=== PATIENT | male | born 1990 | race Caucasian/White ===

== ENCOUNTER 2018-12-29 12:12 | Inpatient (IN) | payer OTHER ==
[~2018-12-29] VITALS: Ht 188 cm; Wt 100.0 kg
[2018-12-29] MEDS ORDERED: MULTIVITAMIN -ADULT INJECTION 10 ML, THIAMINE INJection 100 MG, FOLIC ACID 1 MG in NS 1... IV ONE (12:30)
[2018-12-29] MEDS ORDERED: OXAZEPAM 15 MG CAP PO ONE (12:30)
[2018-12-29] MEDS: LORazepam 2 MG TAB PO PRN ×2 (12:43→14:56)
[2018-12-29 12:49] LABS: HEMATOCRIT 48.4 % (42.0-52.0); HEMOGLOBIN 17.6 g/dl (13.5-17.5); MEAN CORPUSCULAR HEMOGLOBIN 32.6 pg (27.0-33.0); MEAN CORPUSCULAR HGB CONC 36.4 g/dl (32.0-36.5); MEAN CORPUSCULAR VOLUME 89.6 fl (80.0-96.0); PLATELET COUNT, AUTOMATED 303 10^3/uL (150-450); WHITE BLOOD COUNT 9.5 10^3/uL (4.0-10.0)
[2018-12-29 13:31] LABS: ACETAMINOPHEN LEVEL < 2.0 UG/ML (10.0-30.0); ALT/SGPT 47 U/L (12-78); BILIRUBIN,DIRECT 0.4 MG/DL (0.0-0.2); BILIRUBIN,TOTAL 1.4 MG/DL (0.2-1.0); BLOOD UREA NITROGEN 20 MG/DL (7-18); CALCIUM LEVEL 10.3 MG/DL (8.5-10.1); CARBON DIOXIDE LEVEL 30 MEQ/L (21-32); CHLORIDE LEVEL 97 MEQ/L (98-107); CREATININE FOR GFR 1.26 MG/DL (0.70-1.30); ETHYL ALCOHOL (ETHANOL) 0.084 % (0.000-0.010); GLOMERULAR FILTRATION RATE > 60.0 (>60); GLUCOSE, FASTING 99 MG/DL (70-100); LIPASE 76 U/L (73-393); POTASSIUM SERUM 4.2 MEQ/L (3.5-5.1); SALICYLATE LEVEL < 1.7 MG/DL (5.0-30.0); SODIUM LEVEL 139 MEQ/L (136-145); THYROID STIMULATING HORMONE 0.591 uIU/ML (0.358-3.740); TOTAL PROTEIN 8.8 GM/DL (6.4-8.2)
[2018-12-29 14:59] LABS: AMPHETAMINES LEVEL URINE NEGATIVE (NEGATIVE); BARBITURATES URINE NEGATIVE (NEGATIVE); BENZODIAZEPINES URINE NEGATIVE (NEGATIVE); CANNABINOIDS URINE POSITIVE (NEGATIVE); COCAINE METABOLITE URINE NEGATIVE (NEGATIVE); METHADONE URINE NEGATIVE (NEGATIVE); OPIATES URINE NEGATIVE (NEGATIVE); PHENCYCLIDINE URINE NEGATIVE (NEGATIVE)
[2018-12-29] MEDS ORDERED: MAALOX 30 ML SUSP *UDC PO PRN (20:30)
[2018-12-29] MEDS ORDERED: NICOTINE 21MG/24HR 1 EA TRANSDERMAL TD ONE (20:30)
[2018-12-29] MEDS ORDERED: THIAMINE 100 MG TAB PO SCH (21:00)
[2018-12-29] MEDS: THIAMINE 100 MG TAB PO SCH (21:00)
--- NOTE | 2018-12-29 21:38 | ECGEPIP ---
[facility] - ED Test Date: 2018-12-29 Pat Name: GIL CHAUDHRY Department: Room: - Gender: Male [employer] Dispatcher: [facility] : 1990 Requested By: Jabier Barriga Order Number: [id number] Reading MD: Lina Julian Measurements Intervals [place] Rate: 109 P: 61 [place]: 141 QRS: 0 QRSD: 94 T: 41 QT: 327 QTc: 441 Interpretive Statements SINUS TACHYCARDIA ABNORMAL RHYTHM ECG NO PRIOR Electronically Signed on 12-29-2018 21:38:21 EDT by Lina Julian
[2018-12-29] MEDS ORDERED: LORazepam 2 MG TAB PO ONE (22:15)
[2018-12-29] MEDS: ONDANSETRON 4 MG TAB (S0181) PO PRN (22:35)
[2018-12-29 22:52] VITALS: BP 131/87
[2018-12-29 22:54] VITALS: BP 131/87
[2018-12-30] VITALS (11 sets, daily range): BP systolic 117–152; BP diastolic 67–97
[2018-12-30] MEDS ORDERED: MIRTAZAPINE 15 MG TAB PO ONE (00:15)
[2018-12-30] MEDS: LORazepam 2 MG TAB PO PRN ×5 (07:43→19:45)
[2018-12-30] MEDS: ONDANSETRON 4 MG TAB (S0181) PO PRN (07:43)
[2018-12-30] MEDS: MULTIVITAMINS/MINERALS THERAP 1 TAB PO SCH (07:43)
[2018-12-30] MEDS: NICOTINE 21MG/24HR 1 EA TRANSDERMAL TD PRN (07:44)
[2018-12-30] MEDS: THIAMINE 100 MG TAB PO SCH ×2 (07:44→20:12)
[2018-12-30] MEDS: FOLIC ACID 1 MG TAB PO SCH (07:44)
--- NOTE | 2018-12-30 08:53 | HPEPDOC ---
General Date of Admission Dec 29, 2018 at 20:22 Date of Service: Dec 30, 2018 Attending Physician: TEOFILO BYNUM MD Chief Complaint The patient is a 28-year-old male admitted with a reason for visit of Alcohol Withdrawl/Vomiting. History of Present Illness Janice Julien is a 28 year old male, primary medical history significant for heavy alcohol and polysubstance abuse, admitted on account of alcohol withdrawal. Patient reportedly drinks typically 2 bottles of liquor a day. On admission he also complained of headache, eyes shaking, diaphoresis, tremors. On assessment, he complains of hematemesis 2 nights ago and upper epigastric pain. He, however, denies chest pain, shortness of breath, weakness. Home Medications No Active Prescriptions or Reported Meds Allergies Coded Allergies: No Known Allergies (Unverified , 12/29/18) Past Medical History Medical History Depression Anxiety Nicotine dependence Polysubstance abuse-THC Alcohol abuse Surgical History [place] tooth removal Family History Significant Family History: No pertinent family hx Denies any pertinent family history Social History * Smoker: greater than 1 pack/day, cigarettes Alcohol: heavy Drugs: marijuana Psychosocial History: Anxiety, Depression A-FIB/CHADSVASC A-FIB History Current/History of A-Fib/PAF?: No Current PO Anticoag Therapy: No Review of Systems Other systems A pertinent 10 point review of systems is completed, negative except as stated in the history of presenting illness Physical Examination Other physical findings GENERAL: NAD SKIN : Warm, dry intact HEENT: Atraumatic, normocephalic, moist mucous membrane CARDIOVASCULAR: Regular rate and rhythm, S1S2, no JVD, no edema, distal pulses + palpable RESP: CTAB, no accessory muscle use noted ABDOMEN: BS+ non distended non tender MS: no joint deformities NEURO: Alert and oriented x 3, CN2-12 grossly intact, tremors present, PSYCH: no anxiety or agitation, appropriate mood and affect. Vital Signs Vital Signs Date Time Temp Pulse Resp B/P (MAP) Pulse Ox O2 Delivery O2 Flow Rate FiO2 12/30/18 07:36 93 135/88 12/30/18 06:38 99.0 14 12/29/18 22:54 95 12/29/18 21:00 Room Air Laboratory Data Labs 24H Laboratory Tests 2 12/29/18 12:33: Nucleated Red Blood Cells % (auto) 0.0, Anion Gap 12, Glomerular Filtration Rate > 60.0, Calcium Level 10.3H, Aspartate Amino Transf (AST/SGOT) 59H, Alanine Aminotransferase (ALT/SGPT) 47, Alkaline Phosphatase 110, Total Bilirubin 1.4H, Direct Bilirubin 0.4H, Total Protein 8.8H, Albumin 5.0, Albumin/Globulin Ratio 1.32, Lipase 76, Thyroid Stimulating Hormone (TSH) 0.591, Salicylates Level < 1.7L, Urine Amphetamines Screen NEGATIVE, Urine Benzodiazepines Screen NEGATIVE, Urine Opiates Screen NEGATIVE, Urine Methadone Screen NEGATIVE, Acetaminophen Level < 2.0L, Urine Barbiturates Screen NEGATIVE, Urine Phencyclidine Screen NEGATIVE, Urine Cocaine Metabolite Screen NEGATIVE, Urine Cannabinoids Screen POSITIVEH, Ethyl Alcohol Level 0.084H CBC/BMP Laboratory Tests 12/29/18 12:33 Red Blood Count 5.40, Mean Corpuscular Volume 89.6, Mean Corpuscular Hemoglobin 32.6, Mean Corpuscular Hemoglobin Concent 36.4, Red Cell Distribution Width 11.9 Assessment/Plan Hematemesis with epigastric pain -Start patient on proton pump inhibitor twice a day with sucrafate -Recheck hemoglobin -Reevaluation for effects of therapy Alcohol abuse and withdrawal -Management per primary team Plan / VTE VTE Prophylaxis Ordered?: No VTE Exclusion Mechanical Proph: Low Risk for VTE LINDSEY LEIVA Dec 30, 2018 08:53
[2018-12-30] MEDS ORDERED: FOLIC ACID 1 MG TAB PO SCH (09:00)
[2018-12-30] MEDS ORDERED: MULTIVITAMINS/MINERALS THERAP 1 TAB PO SCH (09:00)
[2018-12-30] MEDS: PANTOPRAZOLE 40MG TAB (PROTONIX) PO SCH ×2 (09:19→20:12)
[2018-12-30 09:46] LABS: HEMATOCRIT 45.8 % (42.0-52.0); HEMOGLOBIN 15.6 g/dl (13.5-17.5); MEAN CORPUSCULAR HEMOGLOBIN 32.2 pg (27.0-33.0); MEAN CORPUSCULAR HGB CONC 34.1 g/dl (32.0-36.5); MEAN CORPUSCULAR VOLUME 94.4 fl (80.0-96.0); PLATELET COUNT, AUTOMATED 199 10^3/uL (150-450); RED BLOOD COUNT 4.85 10^6/uL (4.30-6.10); WHITE BLOOD COUNT 6.7 10^3/uL (4.0-10.0)
[2018-12-30 10:20] LABS: ALT/SGPT 43 U/L (12-78); BILIRUBIN,TOTAL 1.7 MG/DL (0.2-1.0); BLOOD UREA NITROGEN 22 MG/DL (7-18); CALCIUM LEVEL 9.1 MG/DL (8.5-10.1); CARBON DIOXIDE LEVEL 35 MEQ/L (21-32); CHLORIDE LEVEL 98 MEQ/L (98-107); CREATININE FOR GFR 1.25 MG/DL (0.70-1.30); GLOMERULAR FILTRATION RATE > 60.0 (>60); GLUCOSE, FASTING 81 MG/DL (70-100); POTASSIUM SERUM 3.7 MEQ/L (3.5-5.1); SODIUM LEVEL 139 MEQ/L (136-145); TOTAL PROTEIN 7.2 GM/DL (6.4-8.2)
[2018-12-30] MEDS: SUCRALFATE 1 GM TAB PO SCH ×3 (11:05→20:12)
[2018-12-30] MEDS: IBUPROFEN 600 MG TAB PO PRN ×3 (11:12→22:01)
--- NOTE | 2018-12-30 11:44 | MHHPEPDOC ---
General Date Of Admission: Dec 29, 2018 Legal Status: 9.39 Chief Complaint "alcohol withdrawals and anxiety and depression" History of Present Illness HISTORY OF THE PRESENT ILLNESS: Joaquim is a 28 -year-old , male, who self-referred to the ER after experiencing suicidal ideations and drinking 2 bottles of Bacardi. Per ED, Joaquim stated "I've been suicidal for the past month". He has a long history of alcohol abuse and was forced by the to complete a detox program months ago but began drinking again after completing the program. 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 Per ED, in response to his EtOH addiction and current unemployment, Joaquim feels "it would just be easier if I was ". He denied any plan of suicide and any HI. Per ED, Joaquim reported headaches and that his "eyes [were] shaking". He also stated that he consistently drinks 2 bottles of liquor a day. Psychiatric Review of Systems Depression (2 or more weeks): depressed mood, insomnia/hypersomnia (only getti ng about 3 hours of sleep), feelings of excess/guilt, difficulty concentrating, appetite changes (half a bagel is the only thing he's eaten in 4 days -can't keep anyhting down except alcohol. ), suicidal thoughts Dianne (4 or more days of): flight of ideas (always) PTSD: denies Anxiety: situational anxiety, stressor related anxiety, panic attacks (In november. "felt like he was having a heart attack", racing heart, abdominal cramping, lasted 10 minutes) Anxiety/ 6 months or more of: restlessness, keyed up, difficulty concentrating, irritability Past Psychiatric History Previous Psychiatric Diagnosis: Depression. Substance abuse disorder. Previous Psychiatric Admissions: Admitted to psych/ rehab units for alcohol use. Suicide Attempts: Denies Psychiatric Follow-up: TBD Psychiatric medications: Had a script for Campral given after 28 day detox program. Didn't refill it after first bottle was used up. Past Medical History Head Injury: Yes (3 concussions in lifetime) Seizures: Yes (Possible seizure when home alone without alcohol. Post-ictal confusion, body was sore, mouth hurt. ) Hospitalizations: No Surgeries: Yes ([place] teeth) Family Medical/Psychiatric HX Psychiatric Disorders: No Addiction: No Suicide Attemps/Completions: No Addiction History nicotine (1-2 packs per day ), alcohol (2 Liters of Bicardi Liquor/day) Social History Childhood: [place] childhood. Parents at 13. 6 siblings. He is the middle youngest. Good childhood - "never wanted anything." Abuse/Trauma: none Current Living Situation: Lives with girlfriend in [place]. Education: HS grad. 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 Social Support: Family is supportive Legal: Possession of MJ prior to at 20y/o Marital: Single - lives with girlfriend. Never - no kids Mental Status Examination General Appearance: disheveled Build: average Demeanor: average Eye Contact: average Activity: average Behavior: cooperative Speech: clear Mood: euthymic Mood good Affect: full Thought Process: logical/linear Thought Content (Delusions): none reported Thought Content (Other): none reported Thought Content (Aggressive): none reported Perception (Hallucinations): none reported Perception (Other): none reported Cognition (Impairment of): none reported Cognition(Intelligence Est.): average Oriented: Awake, Oriented times three Insight: fair Judgment: Fair Psychosis: Denies, Other Diagnoses depression unspecified r/o adjustment d/o with depression/anxiety r/o substance induced depression secondary alcohol alcohol use d/o - severe A-FIB/CHADSVASC A-FIB History Current/History of A-Fib/PAF?: No Current PO Anticoag Therapy: No Treatment Treatment ordered: NONE Reason Anticoagulant not given: Not indicated/[id number] Assessment Pt thinks he is drinking to self-medicate his depression. States that he is depressed because he is no longer in the . States that the other day he was home with alcohol withdrawals puking blood and bile and felt suicidal so decided to come to the hospital for help. States he is a bit depressed today and is requiring ativan for withdrawal frequently based on ciwa protocol and his vitals are being checked every hour. Pt states it is getting better though. States he's taken zoloft in the past but wasn't compliant and is willing to try it again for mood here. Desires a support system/ alcohol use support program ([facility]). States he tried to self-detox by talking to his friends but restarted due to terrible withdrawal. Denies any current SI/HI. Initial Treatment Plan 1. Patient was admitted on a 9.39 status. 2. Complete history was obtained. 3. With patients permission, family will be contacted and database will be expanded. 4. Patients medication regimen will be reviewed and changed accordingly. 5. Patient will be provided with protected environment. 6. Patient will be treated with individual, group, and milieu therapies. 7. Patient will receive supportive psych-education. 8. Discharge planning will commence immediately. 9. Outpatient follow-up treatment will be strongly recommended. 10. The initial treatment plan will focus initially on: * Depression. * Risk for suicide. * Substance abuse. 11. Start zoloft 50mg daily for mood, continue ativan ciwa protocol and vitals checks per protocol for alcohol withdrawal ESTIMATED LENGTH OF STAY: 5-7 DAYS. TIME SPENT COUNSELING AND COORDINATING INITIAL CARE: 60 minutes. Vital Signs Vital Signs Date Time Temp Pulse Resp B/P (MAP) Pulse Ox O2 Delivery O2 Flow Rate FiO2 12/30/18 10:00 89 136/67 12/30/18 06:38 99.0 14 12/29/18 22:54 95 12/29/18 21:00 Room Air Laboratory Data 24H Labs Laboratory Tests 2 12/29/18 12:33: Nucleated Red Blood Cells % (auto) 0.0, Anion Gap 12, Glomerular Filtration Rate > 60.0, Calcium Level 10.3H, Aspartate Amino Transf (AST/SGOT) 59H, Alanine Aminotransferase (ALT/SGPT) 47, Alkaline Phosphatase 110, Total Bilirubin 1.4H, Direct Bilirubin 0.4H, Total Protein 8.8H, Albumin 5.0, Albumin/Globulin Ratio 1.32, Lipase 76, Thyroid Stimulating Hormone (TSH) 0.591, Salicylates Level < 1.7L, Urine Amphetamines Screen NEGATIVE, Urine Benzodiazepines Screen NEGATIVE, Urine Opiates Screen NEGATIVE, Urine Methadone Screen NEGATIVE, Acetaminophen Level < 2.0L, Urine Barbiturates Screen NEGATIVE, Urine Phencyclidine Screen NEGATIVE, Urine Cocaine Metabolite Screen NEGATIVE, Urine Cannabinoids Screen POSITIVEH, Ethyl Alcohol Level 0.084H 12/30/18 09:07: Nucleated Red Blood Cells % (auto) 0.0, Anion Gap 6L, Glomerular Filtration Rate > 60.0, Calcium Level 9.1, Aspartate Amino Transf (AST/SGOT) 39H, Alanine Aminotransferase (ALT/SGPT) 43, Alkaline Phosphatase 92, Total Bilirubin 1.7H, Total Protein 7.2, Albumin 4.0, Albumin/Globulin Ratio 1.25, Blood Urea Nitrogen 22H, Creatinine 1.25, Sodium Level 139, Potassium Level 3.7, Chloride Level 98, Carbon Dioxide Level 35H CBC/BMP Laboratory Tests 12/29/18 12:33 Red Blood Count 5.40, Mean Corpuscular Volume 89.6, Mean Corpuscular Hemoglobin 32.6, Mean Corpuscular Hemoglobin Concent 36.4, Red Cell Distribution Width 11.9 12/30/18 09:07 Red Blood Count 4.85, Mean Corpuscular Volume 94.4, Mean Corpuscular Hemoglobin 32.2, Mean Corpuscular Hemoglobin Concent 34.1, Red Cell Distribution Width 11.9, Calcium Level 9.1, Aspartate Amino Transf (AST/SGOT) 39 H, Alanine Aminotransferase (ALT/SGPT) 43, Alkaline Phosphatase 92, Total Bilirubin 1.7 H, Total Protein 7.2, Albumin 4.0 Medications No Active Prescriptions or Reported Meds Allergies Coded Allergies: No Known Allergies (Unverified , 12/29/18) MARLEE COFFEY DO Dec 30, 2018 11:42
[2018-12-30] MEDS ORDERED: SERTRALINE HCL 50 MG TAB PO ONE (12:15)
[2018-12-30] MEDS ORDERED: hydrOXYzine 50 MG TAB PO ONE (21:45)
[2018-12-31] VITALS (7 sets, daily range): BP systolic 129–149; BP diastolic 72–92
[2018-12-31] MEDS: SUCRALFATE 1 GM TAB PO SCH ×4 (07:37→20:32)
[2018-12-31] MEDS: LORazepam 2 MG TAB PO PRN (08:01)
[2018-12-31] MEDS: PANTOPRAZOLE 40MG TAB (PROTONIX) PO SCH ×2 (08:01→20:32)
[2018-12-31] MEDS: FOLIC ACID 1 MG TAB PO SCH (08:01)
[2018-12-31] MEDS: SERTRALINE HCL 50 MG TAB PO SCH (08:01)
[2018-12-31] MEDS: MULTIVITAMINS/MINERALS THERAP 1 TAB PO SCH (08:01)
[2018-12-31] MEDS: THIAMINE 100 MG TAB PO SCH ×2 (08:01→20:32)
[2018-12-31] MEDS: NICOTINE 21MG/24HR 1 EA TRANSDERMAL TD PRN (08:03)
[2018-12-31] MEDS: MOM 30ML SUSPENSION UDC PO PRN (10:18)
--- NOTE | 2018-12-31 10:57 | MHIPNPDOC ---
[facility] Progress Note Progress Note DATE OF SERVICE: 12/31/18 HISTORY: Joaquim is a 28 -year-old , male, who self-referred to the ER after experiencing suicidal ideations and drinking 2 bottles of Bacardi. Per ED, Joaquim stated "I've been suicidal for the past month". He has a long history of alcohol abuse and was forced by the to complete a detox program months ago but began drinking again after completing the program. 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 Per ED, in response to his EtOH addiction and current unemployment, Joaquim feels "it would just be easier if I was ". He denied any plan of suicide and any HI. Per ED, Joaquim reported headaches and that his "eyes [were] shaking". He also stated that he consistently drinks 2 bottles of liquor a day. VITAL SIGNS: See below. Ciwa rating an 8 this am and received ativan per protocol, is improved from yesterday. NEW TEST RESULTS: See below CURRENT MEDICATIONS: See below. MENTAL STATUS EXAMINATION: General Appearance: clean, stated-age, hospital scrubs Build: average Demeanor: average Eye Contact: average Activity: average Behavior: cooperative Speech: clear Mood: euthymic Mood "ok" Affect: full, congruent Thought Process: logical/linear Thought Content (Delusions): none reported Thought Content (Other): none reported Thought Content (Aggressive): none reported Perception (Hallucinations): none reported Perception (Other): none reported Cognition (Impairment of): none reported Cognition(Intelligence Est.): average Oriented: Awake, Oriented times three Insight: fair Judgment: Fair Psychosis: Denies, Other DIAGNOSES: depression unspecified r/o adjustment d/o with depression/anxiety r/o substance induced depression secondary alcohol alcohol use d/o - severe ASSESSMENT:Pt seen and states he's ok, appetite improved as alcohol withdrawal improves. Continues to receive ativan based on ciwa protocol for alcohol withdrawal although ciwa rating improved since yesterday and states he's feels better today and feels his withdrawal is better. Is attending some groups later in the day. Is tolerating zoloft for his mood and feels helpful. mood improved as alcohol withdrawal improves. Denies SI/HI, hallucinations, delus ions. Feels safe here. MANAGEMENT PLAN: continue plan zoloft 50mg daily for mood ativan ciwa protocol and vitals checks per protocol for alcohol withdrawal TIME SPENT: 30 minutes. Vital Signs Vital Signs Date Time Temp Pulse Resp B/P (MAP) Pulse Ox O2 Delivery O2 Flow Rate FiO2 12/31/18 10:19 98.5 97 16 147/81 (103) 12/29/18 22:54 95 12/29/18 21:00 Room Air Current Medications Current Medications Medications (Trade) Dose Ordered Sig/John Route PRN Reason Start Time Stop Time Status Last Admin Dose Admin Al Hydrox/Mg Hydrox/Simethicone (Mylanta) 30 ml Q4HP PRN PO HEARTBURN/INDIGESTION 12/29/18 20:30 Folic Acid (Folic Acid) 1 mg DAILY PO 12/30/18 09:00 12/30/18 09:00 DC Folic Acid (Folic Acid) 1 mg DAILY PO 12/30/18 09:00 12/31/18 08:01 Home Med (Med Rec Complete!) ASDIRECTED XX 12/29/18 19:30 12/29/18 19:31 DC Ibuprofen (Advil) 600 mg Q4HP PRN PO PAIN 12/30/18 11:00 12/30/18 22:01 Lorazepam (Ativan) 2 mg ASDIRECTED PRN PO SEE PROTOCOL 12/29/18 12:30 12/29/18 22:37 DC 12/29/18 14:56 Lorazepam (Ativan) 2 mg ASDIRECTED PRN PO SEE PROTOCOL 12/29/18 20:30 12/31/18 08:01 Magnesium Hydroxide (Milk Of Magnesia) 30 ml DAILYPRN PRN PO CONSTIPATION 12/29/18 20:30 12/31/18 10:18 Multivitamins (Theragram-M) 1 tab DAILY PO 12/30/18 09:00 12/30/18 09:00 DC Multivitamins (Theragram-M) 1 tab DAILY PO 12/30/18 09:00 12/31/18 08:01 Nicotine (Nicoderm Cq 21mg) 1 patch DAILY PRN TD Cravings 12/29/18 20:30 12/31/18 08:03 Ondansetron HCl (Zofran) 4 mg Q4HP PRN PO Nausea/Vomiting 12/29/18 20:30 12/30/18 07:43 Pantoprazole Sodium (Protonix) 40 mg BID PO 12/30/18 09:00 01/04/19 08:59 12/31/18 08:01 Sertraline HCl (Zoloft) 50 mg DAILY PO 12/31/18 09:00 12/31/18 08:01 Sucralfate (Carafate) 1 gm ACHS PO 12/30/18 12:00 12/31/18 07:37 Thiamine HCl (Thiamine HCl) 100 mg BID PO 12/29/18 21:00 12/29/18 22:37 DC Thiamine HCl (Thiamine HCl) 100 mg BID PO 12/29/18 21:00 01/01/19 09:01 12/31/18 08:01 Allergies Coded Allergies: No Known Allergies (Unverified , 12/29/18) MARLEE COFFEY DO Dec 31, 2018 10:57 am
[2018-12-31] MEDS: traZODone 50 MG TAB PO PRN (21:46)
[2019-01-01 06:47] VITALS: BP 119/67
[2019-01-01] MEDS: SUCRALFATE 1 GM TAB PO SCH ×4 (06:49→20:19)
[2019-01-01] MEDS: THIAMINE 100 MG TAB PO SCH (08:03)
[2019-01-01] MEDS: MULTIVITAMINS/MINERALS THERAP 1 TAB PO SCH (08:03)
[2019-01-01] MEDS: FOLIC ACID 1 MG TAB PO SCH (08:03)
[2019-01-01] MEDS: SERTRALINE HCL 50 MG TAB PO SCH (08:03)
[2019-01-01] MEDS: NICOTINE 21MG/24HR 1 EA TRANSDERMAL TD PRN (08:04)
[2019-01-01] MEDS: PANTOPRAZOLE 40MG TAB (PROTONIX) PO SCH ×2 (08:04→20:19)
[2019-01-01 08:20] VITALS: BP 154/94
--- NOTE | 2019-01-01 11:48 | MHIPNPDOC ---
[facility] Progress Note Progress Note DATE OF SERVICE: 01/01/19 HISTORY: Joaquim is a 28 -year-old , male, who self-referred to the ER after experiencing suicidal ideations and drinking 2 bottles of Bacardi. Per ED, Joaquim stated "I've been suicidal for the past month". He has a long history of alcohol abuse and was forced by the to complete a detox program months ago but began drinking again after completing the program. 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 Per ED, in response to his EtOH addiction and current unemployment, Joaquim feels "it would just be easier if I was ". He denied any plan of suicide and any HI. Per ED, Joaquim reported headaches and that his "eyes [were] shaking". He also stated that he consistently drinks 2 bottles of liquor a day. VITAL SIGNS: See below. Ciwa rating an 8 this am and received ativan per protocol, is improved from yesterday. NEW TEST RESULTS: See below CURRENT MEDICATIONS: See below. MENTAL STATUS EXAMINATION: General Appearance: clean, stated-age, hospital scrubs Build: average Demeanor: average Eye Contact: average Activity: average Behavior: cooperative Speech: clear Mood: euthymic Mood "ok" Affect: full, congruent Thought Process: logical/linear Thought Content (Delusions): none reported Thought Content (Other): none reported Thought Content (Aggressive): none reported Perception (Hallucinations): none reported Perception (Other): none reported Cognition (Impairment of): none reported Cognition(Intelligence Est.): average Oriented: Awake, Oriented times three Insight: fair Judgment: Fair Psychosis: Denies, Other DIAGNOSES: depression unspecified r/o adjustment d/o with depression/anxiety r/o substance induced depression secondary alcohol alcohol use d/o - severe ASSESSMENT:Pt seen and states he's ok, is wondering when he can be discharge as he feels he's no longer having alcohol withdrawal symptoms although he required ativan for ciwa rating of 8 yesterday due to alcohol withdrawal. He states he's eating well and going to groups due to feeling better. He appears to be severely craving alcohol at this point even though he denies it when asked. Will state naltrexone daily for alcohol craving, risks/benefits discussed. Will continue to monitor pt on ciwa protocol for alcohol withdrawal as is still in risk of severe withdrawal symptoms/seizures. Is attending groups thru out the day and socializing in the milieu. Is tolerating zoloft for his mood and feels helpful. His mood his improved as alcohol withdrawal improves. Denies SI/HI, hallucinations, delusions. Feels safe here. MANAGEMENT PLAN: continue plan. start naltrexone 50mg daily for alcohol craving zoloft 50mg daily for mood ativan ciwa protocol and vitals checks per protocol for alcohol withdrawal naltrexone 50mg daily TIME SPENT: 30 minutes. Vital Signs Vital Signs Date Time Temp Pulse Resp B/P (MAP) Pulse Ox O2 Delivery O2 Flow Rate FiO2 01/01/19 08:20 70 154/94 01/01/19 06:47 98.9 18 12/29/18 22:54 95 12/29/18 21:00 Room Air Current Medications Current Medications Medications (Trade) Dose Ordered Sig/John Route PRN Reason Start Time Stop Time Status Last Admin Dose Admin Al Hydrox/Mg Hydrox/Simethicone (Mylanta) 30 ml Q4HP PRN PO HEARTBURN/INDIGESTION 12/29/18 20:30 Folic Acid (Folic Acid) 1 mg DAILY PO 12/30/18 09:00 12/30/18 09:00 DC Folic Acid (Folic Acid) 1 mg DAILY PO 12/30/18 09:00 01/01/19 08:03 Home Med (Med Rec Complete!) ASDIRECTED XX 12/29/18 19:30 12/29/18 19:31 DC Ibuprofen (Advil) 600 mg Q4HP PRN PO PAIN 12/30/18 11:00 12/30/18 22:01 Lorazepam (Ativan) 2 mg ASDIRECTED PRN PO SEE PROTOCOL 12/29/18 12:30 12/29/18 22:37 DC 12/29/18 14:56 Lorazepam (Ativan) 2 mg ASDIRECTED PRN PO SEE PROTOCOL 12/29/18 20:30 12/31/18 08:01 Magnesium Hydroxide (Milk Of Magnesia) 30 ml DAILYPRN PRN PO CONSTIPATION 12/29/18 20:30 12/31/18 10:18 Multivitamins (Theragram-M) 1 tab DAILY PO 12/30/18 09:00 12/30/18 09:00 DC Multivitamins (Theragram-M) 1 tab DAILY PO 12/30/18 09:00 01/01/19 08:03 Nicotine (Nicoderm Cq 21mg) 1 patch DAILY PRN TD Cravings 12/29/18 20:30 01/01/19 08:04 Ondansetron HCl (Zofran) 4 mg Q4HP PRN PO Nausea/Vomiting 12/29/18 20:30 12/30/18 07:43 Pantoprazole Sodium (Protonix) 40 mg BID PO 12/30/18 09:00 01/04/19 08:59 01/01/19 08:04 Sertraline HCl (Zoloft) 50 mg DAILY PO 12/31/18 09:00 01/01/19 08:03 Sucralfate (Carafate) 1 gm ACHS PO 12/30/18 12:00 01/01/19 06:49 Thiamine HCl (Thiamine HCl) 100 mg BID PO 12/29/18 21:00 12/29/18 22:37 DC Thiamine HCl (Thiamine HCl) 100 mg BID PO 12/29/18 21:00 01/01/19 09:01 DC 01/01/19 08:03 Trazodone HCl (Desyrel) 50 mg QHSP PRN PO INSOMNIA 12/31/18 21:45 12/31/18 21:46 Allergies Coded Allergies: No Known Allergies (Unverified , 12/29/18) MARLEE COFFEY DO Jan 01, 2019 11:48 am
[2019-01-01] MEDS ORDERED: NALTREXONE 50 MG TAB PO ONE (12:00)
[2019-01-01] MEDS ORDERED: hydrOXYzine 50 MG TAB PO PRN (12:30)
[2019-01-01 18:00] VITALS: BP 140/84
[2019-01-01] MEDS: traZODone 50 MG TAB PO PRN (20:19)
[2019-01-02] MEDS: SUCRALFATE 1 GM TAB PO SCH (06:32)
[2019-01-02 06:40] VITALS: BP 131/68
[2019-01-02] MEDS: SERTRALINE HCL 50 MG TAB PO SCH (08:08)
[2019-01-02] MEDS: NICOTINE 21MG/24HR 1 EA TRANSDERMAL TD PRN (08:08)
[2019-01-02] MEDS: MULTIVITAMINS/MINERALS THERAP 1 TAB PO SCH (08:08)
[2019-01-02] MEDS: PANTOPRAZOLE 40MG TAB (PROTONIX) PO SCH (08:08)
[2019-01-02] MEDS: FOLIC ACID 1 MG TAB PO SCH (08:08)
[2019-01-02] MEDS: MOM 30ML SUSPENSION UDC PO PRN (08:10)
[2019-01-02] MEDS ORDERED: NALTREXONE 50 MG TAB PO SCH (09:00)
[2019-01-02] MEDS ORDERED: HYDR50TA70 PO (10:22)
[2019-01-02] MEDS ORDERED: SERT-155 PO (10:23)
[2019-01-02] MEDS ORDERED: NALT50TA4 PO (10:23)
[2019-01-02] MEDS ORDERED: TRAZ-252 PO (10:23)
--- NOTE | 2019-01-02 10:23 | MHDSPDOC ---
[facility] Discharge Summary Discharge Summary DATE OF ADMISSION: Dec 29, 2018 at 8:22 pm DATE OF DISCHARGE: Jan 02, 2019 DISCHARGE DIAGNOSES: depression unspecified r/o adjustment d/o with depression/anxiety r/o substance induced depression secondary alcohol alcohol use d/o - severe REASON FOR ADMISSION: Joaquim is a 28 -year-old , male, who self- referred to the ER after experiencing suicidal ideations and drinking 2 bottles of Bacardi. Per ED, Joaquim stated "I've been suicidal for the past month". He has a long history of alcohol abuse and was forced by the to complete a detox program months ago but began drinking again after completing the program. 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 Per ED, in response to his EtOH addiction and current unemployment, Joaquim feels "it would just be easier if I was ". He denied any plan of suicide and any HI. Per ED, Joaquim reported headaches and that his "eyes [were] shaking". He also stated that he consistently drinks 2 bottles of liquor a day. CONSULTANTS INVOLVED: none TREATMENT AND PROGRESS ON THE UNIT : Pt was admitted to [facility], seen for psychiatric assessment and started on ciwa protocol with ativan that he required frequently for severe alcohol withdrawal his first day of admission and improved greatly with continued detox to no withdrawal symptoms and not requiring ativan at the time of discharge. He was started on zoloft 50mg daily for mood and naltrexone 50mg daily for alcohol craving. He was provided vistaril 50mg q6hr prn anxiety and trazodone 50mg qhs prn insomnia. Pt found his medications beneficial and tolerated them well. He attended groups daily during his stay. His symptoms improved with greatly with treatment. On day of discharge he denied depression, anxiety, insomnia, SI/HI, hallucinations, delusions. He was discharged home with his girlfriend with follow-up at the [place] and [facility]. He felt safe for discharge. DISCHARGE ASSESSMENT: Pt seen and states he's doing "good" and is greatly looking forward to going home with his girlfriend today who is very supportive. He states he's tolerating his medications and they are beneficial. States he's motivated to continue to work on his sobriety. States he slept well last night. He is attending groups and finding them helpful. He denies depression, anxiety, insomnia, SI/HI, hallucinations, delusions, alcohol withdrawal symptoms. Pt feels safe to be discharged home with his girlfriend. MENTAL STATUS EXAMINATION ON DISCHARGE: General Appearance: clean, stated-age, hospital scrubs Build: average Demeanor: average Eye Contact: average Activity: average Behavior: cooperative Speech: clear Mood: euthymic Mood "good" Affect: full, congruent Thought Process: logical/linear Thought Content (Delusions): none reported Thought Content (Other): none reported Thought Content (Aggressive): none reported Perception (Hallucinations): none reported Perception (Other): none reported Cognition (Impairment of): none reported Cognition(Intelligence Est.): average Oriented: Awake, Oriented times three Insight: good Judgment: good Psychosis: Denies MEDICATIONS ON DISCHARGE: zoloft 50mg daily for mood naltrexone 50mg daily vistaril 50mg q6hr prn anxiety trazodone 50mg qhs prn insomnia PLAN/FOLLOWUP ARRANGEMENTS: D/c home with his girlfriend with follow-up at the [place] [facility] and [facility]. The amount of time spent in the coordination of care for this patient was a pproximately 30 minutes. Vital Signs/I&Os Vital Signs Date Time Temp Pulse Resp B/P (MAP) Pulse Ox O2 Delivery O2 Flow Rate FiO2 01/02/19 06:40 65 131/68 01/02/19 06:40 98.5 16 12/29/18 22:54 95 12/29/18 21:00 Room Air Medications No Active Prescriptions or Reported Meds Allergies Coded Allergies: No Known Allergies (Unverified , 12/29/18) MARLEE COFFEY DO Jan 02, 2019 10:23 am
== END 2019-01-02 11:30 | disposition home or self-care (01) | DRG 882 ==
LOC: M ED 12:12 → M ED INP 20:22 → M PSY 21:17
PROVIDERS: ADMIT Psychiatry & Neurology Psychiatry; ATTEND Psychiatry & Neurology Psychiatry
DX: F43.23 Adjustment disorder with mixed anxiety and depressed mood (principal); F10.94 Alcohol use, unspecified with alcohol-induced mood disorder; R45.851 Suicidal ideations; K92.0 Hematemesis; F17.210 Nicotine dependence, cigarettes, uncomplicated